=== PATIENT | female | born 1995 | race Two or more races ===

== ENCOUNTER 2017-10-18 05:45 | Inpatient (IN) | payer OTHER ==
[~2017-10-18] VITALS: Ht 162.6 cm; Wt 70.3 kg
[2017-10-18] MEDS ORDERED: PRENATAL 19 TA1 EAC1 PO (13:41)
== END 2017-10-20 16:25 | disposition home or self-care (01) | DRG 775 ==
LOC: OB/GYN 05:45 → LDR 05:45 → OB/GYN 13:42
PROC: 0UQGXZZ Repair Vagina, External Approach (ICD-10-PCS; principal; 2017-10-18)
PROC: 10E0XZZ Delivery of Products of Conception, External Approach (ICD-10-PCS; 2017-10-18)
PROC: 4A1HXCZ Monitoring of Products of Conception, Cardiac Rate, External Approach (ICD-10-PCS; 2017-10-18)
PROC: 4A033R1 Measurement of Arterial Saturation, Peripheral, Percutaneous Approach (ICD-10-PCS; 2017-10-18)
DX: O71.4 Obstetric high vaginal laceration alone (principal); Z3A.38 38 weeks gestation of pregnancy; Z37.0 Single live birth; Z22.330 Carrier of Group B streptococcus